=== PATIENT | female | born 1995 | race Caucasian/White ===

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

== ENCOUNTER 2017-11-05 21:27 | Emergency (ER) | payer OTHER ==
[2017-11-05 21:33] VITALS: BP 107/65
--- NOTE | 2017-11-05 21:42 | EDPHY ---
H & P Time Seen by Provider: 11/05/17 21:35 HPI/ROS: CHIEF COMPLAINT: Cough and fever HISTORY OF PRESENT ILLNESS: Patient is 22-year-old female who reports cough and fever and body aches starting yesterday evening. She denies any sick contacts. She denies any sore throat shortness breath or abdominal pain. She has no vomiting or diarrhea. Immunizations are up-to-date. She denies any recent travel. She denies history of asthma. She last took Motrin approximately 1 hr prior to arrival. REVIEW OF SYSTEMS: Constitutional: + fever, + chills. Eyes: No discharge. ENT: No sore throat. Cardiovascular: No chest pain, no palpitations. Respiratory: + cough, no shortness of breath. Gastrointestinal: No abdominal pain, no vomiting. Genitourinary: No hematuria. Musculoskeletal: No back pain. + myalgias Skin: No rashes. Neurological: No headache. Smoking Status: Never smoked Physical Exam: General Appearance: Alert and no distress. Eyes: Pupils equal and round no injection. Respiratory: Chest is nontender, lungs are clear to auscultation. Cardiac: regular rate and rhythm. Gastrointestinal: Abdomen is soft and nontender, no masses, bowel sounds normal. Musculoskeletal: Neck is supple and nontender. Extremities have full range of motion and are nontender. Skin: No rashes or lesions. Constitutional: Initial Vital Signs Temperature (C) 38.3 C 11/05/17 21:31 Heart Rate 122 H 11/05/17 21:31 Respiratory Rate 20 11/05/17 21:31 Blood Pressure 107/65 11/05/17 21:31 O2 Sat (%) 96 11/05/17 21:31 O2 Delivery Mode Room Air Allergies/Adverse Reactions: oseltamivir [From Tamiflu] Allergy (Verified 05/20/16 18:27) Home Medications: Medication Instructions Recorded Augmentin 875 MG TAB (*) 05/20/16 Medical Decision Making - Diagnostics Imaging Results: Imaging Impressions Chest X-Ray 11/05/17 21:40 Impression: Findings consistent with airways disease are noted. ED Course/Re-evaluation: 22-year-old female here with less than 24 hr of cough, fever and body aches most consistent with viral syndrome. Chest x-ray reveals no focal pneumonia. She does not hypoxic shows no signs of sepsis. I did offer her Tamiflu but she reports she is allergic to Tamiflu. We discussed indications for return to the emergency room. Is no evidence of strep pharyngitis, meningitis, sepsis, pneumonia on exam today. - Data Points Medications Given: Discontinued Medications Acetaminophen (Tylenol) 1,000 mg PO EDNOW ONE Stop: 11/05/17 21:42 Last Admin: 11/05/17 21:56 Dose: 1,000 mg Departure - Departure Disposition: Home, Routine, Self-Care Clinical Impression: Viral syndrome Condition: Good Instructions: Viral Syndrome (ED) Additional Instructions: Take Tylenol and Motrin as needed for aches and pains. Take next couple days off from school and work. He feel worse in any way or develops shortness of breath or other worrisome symptoms return to the ER for further evaluation. Referrals: NONE *PRIMARY CARE P,. [Primary Care Provider] - As per Instructions [facility],. [Clinic] - As per Instructions
[2017-11-05] MEDS: ACETAMINOPHEN 500 MG TAB PO ONE (21:56)
== END 2017-11-05 22:35 | disposition home or self-care (01) ==
DX: B34.9 Viral infection, unspecified (principal)

== ENCOUNTER 2017-11-06 09:18 | Emergency (ER) | payer OTHER ==
[2017-11-06] MEDS ORDERED: NS 1,000 ML IV ONE ×2 (09:39→09:41)
[2017-11-06] MEDS ORDERED: ONDANSETRON 4 MG/2 ML VIAL IVP ONE ×2 (09:41→10:35)
--- NOTE | 2017-11-06 09:44 | EDPHY ---
HPI/HX/ROS/PE/MDM Narrative: CHIEF COMPLAINT: Fever, nausea, vomiting. HISTORY OF PRESENT ILLNESS: This patient is a 22 year-old female with history of hypothyroidism. She was evaluated at this emergency department last night for fever, body aches, and cough. This morning around 2am, she woke feeling nauseous and began vomiting. She has been unable to keep down fluids since then. She denies diarrhea, She endorses headache and feels her lymph nodes are swollen. She continues to feel febrile and achy. She took Tylenol for relief around 7:00am today. The patient denies any abdominal pain, diarrhea, or history of abdominal surgeries. She denies exposure to any known ill persons. She denies any recent international travel. No chest pain, shortness of breath, palpitations, urinary complaints, lightheadedness. REVIEW OF SYSTEMS: A comprehensive 10 system review of systems is otherwise negative aside from elements mentioned in the history of present illness and medical decision making. PAST MEDICAL HISTORY: Hypothyroidism (Levothyroxine 100mcg) SOCIAL HISTORY: Nonsmoker. Occasional alcohol and marijuana use. Friend at bedside. Student at [employer]. VITAL SIGNS: Reviewed by me GENERAL: Well-developed, well-nourished, no respiratory distress. Tachycardic, occasional cough. HEENT: Atraumatic. Eyes: No icterus, no injection. Mouth: moist mucous membranes. Mild pharygeal erythema. No tonsillar hypertrophy, exudates, or lesions. Neck: supple with shotty adenopathy. LUNGS: Clear to auscultation bilaterally, no wheezes, rhonchi or rales. CARDIAC: Tachycardic, regular. No rubs, murmurs or gallops. ABDOMEN: Soft, nontender, nondistended, bowel sounds normal. BACK: No CVA tenderness. EXTREMITIES: No trauma. No edema. Range of motion is normal throughout. NEURO: Alert and oriented, grossly nonfocal. SKIN: Warm and dry, no rash. PSYCHIATRIC: Normal mentation, no agitation. Portions of this note were transcribed by a medical engineer. I personally performed a history, physical exam, medical decision making, and confirmed accuracy of information the transcribed note. ED Course: 22 y/o female presents with fever, nausea, and vomiting. Plan for labs including CBC, chemistries, liver panel. Plan for flu swab, strep screen, monospot. Plan to administer 2L IV NS and 4mg IV Zofran for symptom relief. WBC 24,000. Plan for additional labs including lactic acid. 10:30 Patient continues to feel quite nauseous. Plan to administer an additional 4mg IV Zofran. Positive strep. Negative flu. Negative mono. Plan to administer 500mg PO amoxicillin. Patient continues to feel nauseous, plan to administer 12.5mg IV Phenergan prior to amoxicillin. Reassessed. Patient now feeling well. HR has decreased. Noted to be at 105 at discharge. Plan to discharge home with prescription for amoxicillin and Phenergan. Patient is a healthy young female and should tolerate oral rehydration/ antibiotics well. Follow up and return precautions discussed. She is comfortable with this plan. MDM: Differential diagnosis for fever in adults was considered including but not limited to pneumonia, urinary tract infection, viral syndrome, and influenza. - Data Points Laboratory Results: Laboratory Results 11/06/17 09:45 11/06/17 09:45 Medications Given: Discontinued Medications Amoxicillin (Amoxicillin) 500 mg PO EDNOW ONE PRN Reason: Protocol Stop: 11/06/17 11:00 Last Admin: 11/06/17 12:10 Dose: 500 mg Sodium Chloride (Ns) 1,000 mls @ 0 mls/hr IV EDNOW ONE; Wide Open PRN Reason: Protocol Stop: 11/06/17 09:40 Last Admin: 11/06/17 09:44 Dose: 1,000 mls Sodium Chloride (Ns) 1,000 mls @ 0 mls/hr IV EDNOW ONE; Wide Open PRN Reason: Protocol Stop: 11/06/17 09:42 Last Admin: 11/06/17 09:49 Dose: 1,000 mls Ibuprofen (Motrin) 600 mg PO EDNOW ONE Stop: 11/06/17 11:31 Last Admin: 11/06/17 12:11 Dose: 600 mg Ondansetron HCl (Zofran) 4 mg IVP EDNOW ONE Stop: 11/06/17 09:42 Last Admin: 11/06/17 09:50 Dose: 4 mg Ondansetron HCl (Zofran) 4 mg IVP EDNOW ONE Stop: 11/06/17 10:36 Last Admin: 11/06/17 10:38 Dose: 4 mg Promethazine HCl (Phenergan) 12.5 mg IVP EDNOW ONE Stop: 11/06/17 11:02 Last Admin: 11/06/17 11:11 Dose: 12.5 mg General Time Seen by Provider: 11/06/17 09:30 Initial Vital Signs: Initial Vital Signs Temperature (C) 37.3 C 11/06/17 09:21 Heart Rate 123 H 11/06/17 09:21 Respiratory Rate 25 H 11/06/17 09:21 Blood Pressure 193/170 H 11/06/17 09:21 O2 Sat (%) 99 11/06/17 09:21 O2 Delivery Mode Room Air Allergies/Adverse Reactions: oseltamivir [From Tamiflu] Allergy (Verified 11/06/17 09:23) Home Medications: Medication Instructions Recorded Augmentin 875 MG TAB (*) 05/20/16 Amoxicillin Trihydrate [Amoxil] 500 mg PO TID 7 Days cap 11/06/17 Promethazine HCl [Phenergan 12.5mg 12.5 mg PO Q8HRS PRN #10 tablet 11/06/17 tab] Departure - Departure Disposition: Home, Routine, Self-Care Clinical Impression: Strep pharyngitis Condition: Good Instructions: Promethazine (By mouth), Amoxicillin (By mouth), Strep Throat (ED ) Additional Instructions: 1. Follow up with your primary care provider. 2. Take amoxicillin as prescribed. It is important to finish your entire course of antibiotics even if you are feeling better. 3. Take Phenergan as prescribed as needed for nausea. 4. Use Tylenol and/or ibuprofen as directed for pain. Drink plenty of fluids. 5. Return to the Emergency Department for high fever, difficulty swallowing, difficulty tolerating liquids, neck pain or stiffness, shortness of breath or other concerns. Adult Pain & Fever Control: We recommend Acetaminophen (Tylenol) and Ibuprofen (Motrin,Advil) for pain and fever control. When fever is high or pain severe, both drugs can be used at the same time, but at different intervals. Please note the time differences. Your dose is: Acetaminophen 650mg every 4 to 6 hours Ibuprofen 400mg every 6-8 hours with food Note: do not take Acetaminophen with Hydrocodone (Vicodin, Lortab) or Oxycodone (Percocet). These medications also contain Acetaminophen. No more than 3000mg of Acetaminophen should be taken in 24 hours (for an adult). Referrals: [facility] [Clinic] - As per Instructions Prescriptions: Promethazine HCl [Phenergan 12.5mg tab] 12.5 mg PO Q8HRS PRN #10 tablet PRN Reason: nausea Amoxicillin Trihydrate [Amoxil] 500 mg PO TID 7 Days cap Report Scribed for: Becca Chen Report Scribed by: Haley Chahal Date of Report: 11/06/17 Time of Report: 10:49
[2017-11-06 10:19] LABS: PLATELET COUNT 276 10^3/uL (150-400)
[2017-11-06] MEDS ORDERED: PROMETHAZINE HCL 25 MG/ML INJ IVP ONE (11:01)
[2017-11-06] MEDS ORDERED: IBUPROFEN 600 MG TAB PO ONE (11:30)
[2017-11-06 12:12] VITALS: BP 110/63
== END 2017-11-06 12:38 | disposition home or self-care (01) ==
LOC: SUPCPDRO 09:18
DX: J02.0 Streptococcal pharyngitis (principal); E86.9 Volume depletion, unspecified
CPT/HCPCS: 96374; J2405; J2550

== ENCOUNTER 2018-01-23 08:25 | Emergency (ER) | payer OTHER ==
[2018-01-23] MEDS ORDERED: NS 1,000 ML IV ONE ×2 (08:59)
--- NOTE | 2018-01-23 09:17 | EDPHY ---
H & P Stated Complaint: n/v/fever Time Seen by Provider: 01/23/18 08:56 HPI/ROS: CHIEF COMPLAINT: Fever, sore throat, nausea, vomiting HISTORY OF PRESENT ILLNESS: 22-year-old immunocompetent female complaining of less than 24 hr of fever, myalgias, sore throat, nausea, vomiting. No diarrhea. No abdominal pain. Good friend diagnosed recently with mononucleosis. Patient requesting strep pharyngitis testing. No back or flank pain. No dysuria hematuria increased frequency. REVIEW OF SYSTEMS: 10 systems reviewed and negative with the exception of the elements mentioned in the history of present illness PAST MEDICAL & SURGICAL HISTORY: No pertinent medical or surgical history SOCIAL HISTORY: Nonsmoker, student PHYSICAL EXAM (Prior to examination, patient consented to physical exam, hands were washed and my usual and customary physical exam procedures followed) 1) GENERAL: Well-developed, well-nourished, alert and oriented. Appears to be in no acute distress. 2) HEAD: Normocephalic, atraumatic 3) HEENT: Pupils equal, round, reactive to light bilaterally. Sclera anicteric. Nasopharynx, oropharynx, clear, no lesions. Dry mucous membranes. Ears bilaterally with normal tympanic membranes. 4) NECK: Full range of motion, no meningeal signs. 5) LUNGS: Clear auscultation bilaterally, no wheezes, no rhonchi, no retractions. 6) HEART: Regular rate and rhythm, no murmur, no heave, no gallop. 7) ABDOMEN: No guarding, no rebound, no focal tenderness, negative McBurney's, negative Vieira's, negative Rovsing's, negative peritoneal sign, 8) MUSCULOSKELETAL: Moving all extremities, no focal areas of tenderness, no obvious trauma. No peripheral edema or discoloration. 9) BACK: No CVA tenderness, no midline vertebral tenderness, no fluctuance, no step-off, no obvious trauma, no visual or palpable abnormality. 10) SKIN: No rash, no petechiae. 11) Psychiatric: Patient is oriented X 3, there is no agitation. DIFFERENTIAL DIAGNOSIS: In no particular order, my differential diagnosis includes, but is not limited to, strep pharyngitis, viral pharyngitis, peritonsillar abscess, retropharyngeal abscess or phlegmon, mononucleosis, meningitis, Lemierre syndrome. - Personal History Current Tetanus/Diphtheria Vaccine: Yes Current Tetanus Diphtheria and Acellular Pertussis (TDAP): Yes - Medical/Surgical History Hx Asthma: No Hx Chronic Respiratory Disease: No Hx Diabetes: No Hx Cardiac Disease: No Hx Renal Disease: No Hx Cirrhosis: No Hx Alcoholism: No Hx HIV/AIDS: No Hx Splenectomy or Spleen Trauma: No Other PMH: Hypothyroid, strep throat - Social History Smoking Status: Never smoked Constitutional: Initial Vital Signs Temperature (C) 37.7 C 01/23/18 08:29 Heart Rate 114 H 01/23/18 08:29 Respiratory Rate 16 01/23/18 08:29 Blood Pressure 107/62 01/23/18 08:29 O2 Sat (%) 96 01/23/18 08:29 O2 Delivery Mode Room Air Allergies/Adverse Reactions: oseltamivir [From Tamiflu] Allergy (Verified 01/23/18 08:28) Home Medications: Medication Instructions Recorded Bcp 01/23/18 Levothyroxine 01/23/18 Ondansetron Odt [Zofran Odt] 4 mg PO Q4PRN PRN #10 tab 01/23/18 Medical Decision Making ED Course/Re-evaluation: 9:17 a.m.: Patient complaining of nausea, vomiting, dry mucous membranes, tachycardic. Will administer IV fluids ,obtain diagnostic studies and re- evaluated. Patient requesting strep pharyngitis testing. Care of patient under supervision of secondary supervising physician Dr Lucio Martin. 10:35 a.m.: Re-evaluation, patient has tolerated oral intake. She is feeling improvement, she is smiling. Heart rate in the 90s. Discussed her laboratory studies, specifically she requested strep testing which is negative. Dunn testing is negative as well. Discussed more than likely viral etiology for symptoms. We discussed supportive care, prescription for Zofran i given. Doubt acute surgical abdominal pathology, doubt acute appendicitis. I do not think that imaging studies indicated at this time. My Usual and customary abdominal precautions instructions provided. She feels comfortable being discharged. - Data Points Laboratory Results: Laboratory Results 01/23/18 09:11 01/23/18 09:11 01/23/18 01/23/18 01/23/18 Unknown 09:11 09:11 WBC RBC Hgb Hct MCV MCH MCHC RDW Plt Count MPV Neut % (Auto) Lymph % (Auto) Dunn % (Auto) Eos % (Auto) Baso % (Auto) Nucleat RBC Rel Count Absolute Neuts (auto) Absolute Lymphs (auto) Absolute Monos (auto) Absolute Eos (auto) Absolute Basos (auto) Absolute Nucleated RBC Immature Gran % Immature Gran # Sodium Potassium Chloride Carbon Dioxide Anion Gap BUN Creatinine Estimated GFR Glucose Calcium Total Bilirubin Conjugated Bilirubin Unconjugated Bilirubin AST ALT Alkaline Phosphatase Total Protein Albumin Lipase Beta HCG, Qual NEGATIVE Monoscreen NEGATIVE (NEGATIVE) Group A Strep Screen NEGATIVE (NEGATIVE) Group A Strep DNA Pending 01/23/18 01/23/18 09:11 09:11 WBC 16.91 10^3/uL H 10^3/uL (3.80-9.50) RBC 4.62 10^6/uL 10^6/uL (4.18-5.33) Hgb 13.0 g/dL g/dL (12.6-16.3) Hct 39.3 % % (38.0-47.0) MCV 85.1 fL fL (81.5-99.8) MCH 28.1 pg pg (27.9-34.1) MCHC 33.1 g/dL g/dL (32.4-36.7) RDW 13.8 % % (11.5-15.2) Plt Count 267 10^3/uL 10^3/uL (150-400) MPV 9.3 fL fL (8.7-11.7) Neut % (Auto) 91.5 % H % (39.3-74.2) Lymph % (Auto) 3.7 % L % (15.0-45.0) Dunn % (Auto) 4.1 % L % (4.5-13.0) Eos % (Auto) 0.0 % L % (0.6-7.6) Baso % (Auto) 0.2 % L % (0.3-1.7) Nucleat RBC Rel Count 0.0 % % (0.0-0.2) Absolute Neuts (auto) 15.46 10^3/uL H 10^3/uL (1.70-6.50) Absolute Lymphs (auto) 0.62 10^3/uL L 10^3/uL (1.00-3.00) Absolute Monos (auto) 0.70 10^3/uL 10^3/uL (0.30-0.80) Absolute Eos (auto) 0.00 10^3/uL L 10^3/uL (0.03-0.40) Absolute Basos (auto) 0.04 10^3/uL 10^3/uL (0.02-0.10) Absolute Nucleated RBC 0.00 10^3/uL 10^3/uL (0-0.01) Immature Gran % 0.5 % % (0.0-1.1) Immature Gran # 0.09 10^3/uL 10^3/uL (0.00-0.10) Sodium 135 mEq/L mEq/L (135-145) Potassium 4.2 mEq/L mEq/L (3.5-5.2) Chloride 107 mEq/L mEq/L (97-110) Carbon Dioxide 19 mEq/l L mEq/l (22-31) Anion Gap 9 mEq/L mEq/L (6-14) BUN 9 mg/dL mg/dL (7-23) Creatinine 0.8 mg/dL mg/dL (0.6-1.0) Estimated GFR > 60 Glucose 97 mg/dL mg/dL (70-100) Calcium 9.3 mg/dL mg/dL (8.5-10.4) Total Bilirubin 1.5 mg/dL H mg/dL (0.1-1.4) Conjugated Bilirubin 0.2 mg/dL mg/dL (0.0-0.5) Unconjugated Bilirubin 1.3 mg/dL H mg/dL (0.0-1.1) AST 24 IU/L IU/L (14-46) ALT 21 IU/L IU/L (9-52) Alkaline Phosphatase 76 IU/L IU/L (38-126) Total Protein 6.7 g/dL g/dL (6.3-8.2) Albumin 3.9 g/dL g/dL (3.5-5.0) Lipase 119 IU/L IU/L (23-300) Beta HCG, Qual Monoscreen Group A Strep Screen Group A Strep DNA Medications Given: Discontinued Medications Sodium Chloride (Ns) 1,000 mls @ 0 mls/hr IV EDNOW ONE; Wide Open PRN Reason: Protocol Stop: 01/23/18 09:00 Last Admin: 01/23/18 09:11 Dose: 1,000 mls Sodium Chloride (Ns) 1,000 mls @ 0 mls/hr IV EDNOW ONE; Wide Open PRN Reason: Protocol Stop: 01/23/18 09:00 Last Admin: 01/23/18 09:11 Dose: 1,000 mls Departure - Departure Disposition: Home, Routine, Self-Care Clinical Impression: Vomiting Qualifiers: Vomiting type: unspecified Vomiting Intractability: non-intractable Nausea presence: with nausea Qualified Code(s): R11.2 - Nausea with vomiting, unspecified Condition: Good Instructions: Acute Nausea and Vomiting (ED) Additional Instructions: Seek immediate medical attention if you develop new or worsening symptoms, if you develop fevers, chills, inability to tolerate oral intake or any other symptoms that concerns you. Referrals: [facility] [Clinic] - As per Instructions Stand Alone Forms: School Excuse Prescriptions: Ondansetron Odt [Zofran Odt] 4 mg PO Q4PRN PRN #10 tab PRN Reason: Nausea
[2018-01-23 09:40] LABS: PLATELET COUNT 267 10^3/uL (150-400)
[2018-01-23 10:52] VITALS: BP 101/67
== END 2018-01-23 10:52 | disposition home or self-care (01) ==
DX: R50.9 Fever, unspecified (principal); R11.2 Nausea with vomiting, unspecified; E86.9 Volume depletion, unspecified